=== PATIENT | female | born 1955 | race Caucasian/White ===

== ENCOUNTER → 2023-10-31 09:41 | Outpatient (REF) | payer MEDICARE, SELFPAY | LOC: HWWDC 09:41 | PROVIDERS: ATTENDING PHYSICIAN Physician Assistant Medical | DX: Z12.31 Encounter for screening mammogram for malignant neoplasm of breast (principal) | CPT/HCPCS: 77063; 77067 ==

== ENCOUNTER → 2024-11-02 10:31 | Outpatient (REF) | payer MEDICARE, SELFPAY | LOC: HWWDC 10:31 | PROVIDERS: ATTENDING PHYSICIAN Physician Assistant Medical | DX: Z12.31 Encounter for screening mammogram for malignant neoplasm of breast (principal) | CPT/HCPCS: 77063; 77067 ==